=== PATIENT | female | born 1995 | race Caucasian/White ===

== ENCOUNTER 2017-08-12 19:53 | Emergency (ER) | payer OTHER ==
[~2017-08-12] VITALS: Ht 170.2 cm; Wt 106.6 kg
[~2017-08-12 19:53] MED LIST: ACEBUTCAFT PO; ALBU90I INH; ALBU90OI INH; ALBU90OI6 INH; ALBU90OI61 INH; AMOCLA875 PO; AMOX500 PO; AZIT250 PO; Augmentin 875-1 EACH PO; BENZ100A PO; Bactrim Ds Tab1 EACH PO; CEPH500 PO; CODGUAEL PO; CRUTCH4 USE; CYCL10 PO; Cleocin HCl150 MG PO; FLUT.05NI; GUAI600T33 PO; HYDACE5 PO; HYDHCL25 PO; IBUP600 PO; IBUP800 PO; Keflex500 MG PO; METF500; METF500 PO; METPRE4DP PO; NAPR500 PO; NAPR550 PO; Nasonex17 GM; Norco 5-325 Ta1 EACH PO; Omeprazole20 M1 PO; PANT40 PO; PENVK500 PO; PERM5TC TOP; PRED20 PO; PROCODE120 PO; PROM25 PO; PSEU120ER PO; Percocet 5-3251 EACH PO; Prednisone20 MG PO; RANI150 PO; RXCODGUASY PO; RXCYCL10 PO; RXHYDACE PO; SERT25 PO; SULTRIDS PO; SULTRISS PO; TRAM50 PO; TYLENOL/MOTRIN PRN; Toradol10 MG PO; Ultram50 MG PO; VICODIN 5-3001 EACH PO; Veetids 500500 MG PO; Ventolin/Prove6.7 GM INH; Zithromax250 MG PO; Zofran4 MG PO; Zofran8 MG PO
[2017-08-12] MEDS ORDERED: IBUP600 PO (21:43)
[2017-08-12] MEDS ORDERED: Robaxin-750750 MG PO (21:43)
== END 2017-08-12 21:55 | disposition home or self-care (01) ==
LOC: ER 19:53
DX: G89.29 Other chronic pain (principal); M54.5 Low back pain; F32.9 Major depressive disorder, single episode, unspecified; J45.909 Unspecified asthma, uncomplicated; F17.200 Nicotine dependence, unspecified, uncomplicated; Z79.899 Other long term (current) drug therapy
CPT/HCPCS: 81000; 81025; 99283; J1100

== ENCOUNTER 2017-08-27 23:57 | Emergency (ER) | payer OTHER ==
[~2017-08-27] VITALS: Ht 170.2 cm; Wt 102.1 kg
[~2017-08-27 23:57] MED LIST changes: +Robaxin-750750 MG PO
[2017-08-28] MEDS ORDERED: Omeprazole20 M1 (00:07)
== END 2017-08-28 01:09 | disposition home or self-care (01) ==
LOC: ER 23:57
DX: G89.29 Other chronic pain (principal); M54.5 Low back pain; Z79.899 Other long term (current) drug therapy; J45.909 Unspecified asthma, uncomplicated; F32.9 Major depressive disorder, single episode, unspecified; F31.9 Bipolar disorder, unspecified; F17.200 Nicotine dependence, unspecified, uncomplicated
CPT/HCPCS: 96372; 99284; J1100; J1885; J3010

== ENCOUNTER → 2017-10-24 | Outpatient (CLI) | payer OTHER ==
[~2017-10-24] MED LIST changes: +Omeprazole20 M1
[2017-10-24 13:36] LABS: BASOPHILS ABSOLUTE AUTO 0.04 K/mm3 (0.00-0.23); BASOPHILS PERCENT AUTO 0 % (0-2); EOSINOPHILS ABSOLUTE AUTO 0.89 K/mm3 (0.00-0.68); EOSINOPHILS PERCENT AUTO 8 % (0-6); Hematocrit 39.6 % (33.0-51.0); Hemoglobin 13.6 g/dL (11.5-16.0); IMMATURE GRAN ABSOLUTE AUTO 0.03 K/mm3 (0.00-0.10); IMMATURE GRAN PERCENT AUTO 0 % (0-1); LYMPHOCYTES ABSOLUTE AUTO 2.51 K/mm3 (0.84-5.20); LYMPHOCYTES PERCENT AUTO 24 % (21-46); MONOCYTES ABSOLUTE AUTO 0.51 K/mm3 (0.16-1.47); MONOCYTES PERCENT AUTO 5 % (4-13); Mean Corpuscular HGB 28.5 pg (26.0-34.0); Mean Corpuscular HGB Conc 34.3 g/dL (31.5-36.5); Mean Corpuscular Volume 83 fL (80-100); Mean Platelet Volume 10.1 fL (9.1-12.4); NEUTROPHILS ABSOLUTE AUTO 6.68 K/mm3 (1.96-9.15); NEUTROPHILS PERCENT AUTO 63 % (41-73); Platelet Count 316 K/mm3 (150-400); RDW Coefficient Variation 14.6 % (11.7-14.2); RDW Standard Deviation 44.3 fL (35.1-46.3); Red Blood Cell Count 4.77 M/mm3 (3.80-5.20); White Blood Cell Count 10.66 K/mm3 (4.00-11.30)
[2017-10-24 13:49] LABS: Alanine Aminotransfer (ALT/SGP 31 U/L (12-78); Albumin, Blood 3.8 g/dL (3.4-5.0); Albumin/Globulin Ratio 0.9 (0.8-1.8); Alk Phos 75 U/L (40-126); Anion Gap 9 mmol/L (6-16); Aspartate Aminotrans (AST/SGOT 19 U/L (12-37); Bilirubin, Total 0.2 mg/dL (0.1-1.0); Blood Urea Nitrogen 8 mg/dL (8-24); Bun/Creatinine Ratio 12.3 (12.0-20.0); CO2, Blood 26 mmol/L (21-32); Calcium, Blood 9.2 mg/dL (8.5-10.1); Chloride, Blood 103 mmol/L (98-108); Creatinine, Blood 0.65 mg/dL (0.40-1.00); Globulin, Blood 4.1 g/dL (2.2-4.0); Glomerular Filtration Rate >60 (60-); Glucose, Blood 115 mg/dL (70-99); Potassium, Blood 4.1 mmol/L (3.5-5.5); Sodium, Blood 138 mmol/L (136-145); Total Protein, Blood 7.9 g/dL (6.4-8.2)
== END | disposition home or self-care (01) ==
LOC: LAB EV 13:33
PROVIDERS: Physician Assistant
DX: R10.84 Generalized abdominal pain (principal)
CPT/HCPCS: 80053; 83690; 85025

== ENCOUNTER 2018-09-15 21:37 | Emergency (ER) | payer OTHER ==
[~2018-09-15] VITALS: Ht 170.2 cm; Wt 113.4 kg
[2018-09-15 22:12] LABS: BASOPHILS ABSOLUTE AUTO 0.05 K/mm3 (0.00-0.23); BASOPHILS PERCENT AUTO 0 % (0-2); EOSINOPHILS ABSOLUTE AUTO 0.68 K/mm3 (0.00-0.68); EOSINOPHILS PERCENT AUTO 5 % (0-6); Hematocrit 40.2 % (33.0-51.0); Hemoglobin 13.7 g/dL (11.5-16.0); IMMATURE GRAN ABSOLUTE AUTO 0.05 K/mm3 (0.00-0.10); IMMATURE GRAN PERCENT AUTO 0 % (0-1); LYMPHOCYTES ABSOLUTE AUTO 4.34 K/mm3 (0.84-5.20); LYMPHOCYTES PERCENT AUTO 28 % (21-46); MONOCYTES ABSOLUTE AUTO 1.07 K/mm3 (0.16-1.47); MONOCYTES PERCENT AUTO 7 % (4-13); Mean Corpuscular HGB 30.1 pg (26.0-34.0); Mean Corpuscular HGB Conc 34.1 g/dL (31.5-36.5); Mean Corpuscular Volume 88 fL (80-100); NEUTROPHILS ABSOLUTE AUTO 9.07 K/mm3 (1.96-9.15); NEUTROPHILS PERCENT AUTO 60 % (41-73); Platelet Count 339 K/mm3 (150-400); RDW Coefficient Variation 12.4 % (11.7-14.2); Red Blood Cell Count 4.55 M/mm3 (3.80-5.20); White Blood Cell Count 15.26 K/mm3 (4.00-11.30)
[2018-09-15 22:25] LABS: Alanine Aminotransfer (ALT/SGP 28 U/L (12-78); Alk Phos 75 U/L (50-136); Anion Gap 7 mmol/L (6-16); Aspartate Aminotrans (AST/SGOT 17 U/L (12-37); Bilirubin, Total 0.3 mg/dL (0.1-1.0); Blood Urea Nitrogen 11 mg/dL (8-24); Bun/Creatinine Ratio 15.3 (12.0-20.0); CO2, Blood 26 mmol/L (21-32); Calcium, Blood 8.4 mg/dL (8.5-10.1); Chloride, Blood 106 mmol/L (98-108); Creatinine, Blood 0.72 mg/dL (0.40-1.00); Globulin, Blood 4.1 g/dL (2.2-4.0); Glomerular Filtration Rate >60 (60-); Glucose, Blood 100 mg/dL (70-99); Potassium, Blood 3.7 mmol/L (3.5-5.5); Sodium, Blood 139 mmol/L (136-145); Total Protein, Blood 8.1 g/dL (6.4-8.2)
[2018-09-15] MEDS ORDERED: ALBU90OI INH (23:19)
[2018-09-15] MEDS ORDERED: Prednisone20 MG PO (23:19)
[2018-09-15] MEDS ORDERED: ONDA4ODT MM (23:19)
== END 2018-09-15 23:46 | disposition home or self-care (01) ==
LOC: ER 21:37
PROVIDERS: Emergency Medicine
DX: J20.9 Acute bronchitis, unspecified (principal); F17.210 Nicotine dependence, cigarettes, uncomplicated; F31.9 Bipolar disorder, unspecified; Z79.899 Other long term (current) drug therapy
CPT/HCPCS: 71046; 80053; 85025; 94640; 96374; 96375; 99284-25; J1885; J2405; J2930

== ENCOUNTER 2018-10-02 16:39 | Emergency (ER) | payer OTHER ==
[~2018-10-02] VITALS: Ht 170.2 cm; Wt 113.4 kg
[~2018-10-02 16:39] MED LIST changes: +ONDA4ODT MM
[2018-10-02 17:25] LABS: BASOPHILS ABSOLUTE AUTO 0.07 K/mm3 (0.00-0.23); BASOPHILS PERCENT AUTO 0 % (0-2); EOSINOPHILS ABSOLUTE AUTO 0.36 K/mm3 (0.00-0.68); EOSINOPHILS PERCENT AUTO 2 % (0-6); Hematocrit 45.2 % (33.0-51.0); Hemoglobin 15.3 g/dL (11.5-16.0); IMMATURE GRAN ABSOLUTE AUTO 0.05 K/mm3 (0.00-0.10); IMMATURE GRAN PERCENT AUTO 0 % (0-1); LYMPHOCYTES ABSOLUTE AUTO 3.56 K/mm3 (0.84-5.20); LYMPHOCYTES PERCENT AUTO 21 % (21-46); MONOCYTES ABSOLUTE AUTO 1.14 K/mm3 (0.16-1.47); MONOCYTES PERCENT AUTO 7 % (4-13); Mean Corpuscular HGB 29.8 pg (26.0-34.0); Mean Corpuscular HGB Conc 33.8 g/dL (31.5-36.5); Mean Corpuscular Volume 88 fL (80-100); NEUTROPHILS ABSOLUTE AUTO 12.01 K/mm3 (1.96-9.15); NEUTROPHILS PERCENT AUTO 70 % (41-73); Platelet Count 419 K/mm3 (150-400); RDW Coefficient Variation 12.5 % (11.7-14.2); RDW Standard Deviation 40.8 fL (35.1-46.3); Red Blood Cell Count 5.14 M/mm3 (3.80-5.20); White Blood Cell Count 17.19 K/mm3 (4.00-11.30)
[2018-10-02 17:56] LABS: Alanine Aminotransfer (ALT/SGP 43 U/L (12-78); Albumin/Globulin Ratio 0.9 (0.8-1.8); Alk Phos 70 U/L (50-136); Anion Gap 8 mmol/L (6-16); Aspartate Aminotrans (AST/SGOT 27 U/L (12-37); Bilirubin, Total 0.4 mg/dL (0.1-1.0); Blood Urea Nitrogen 7 mg/dL (8-24); Bun/Creatinine Ratio 12.7 (12.0-20.0); CO2, Blood 24 mmol/L (21-32); Calcium, Blood 8.7 mg/dL (8.5-10.1); Chloride, Blood 106 mmol/L (98-108); Creatinine, Blood 0.55 mg/dL (0.40-1.00); Globulin, Blood 4.4 g/dL (2.2-4.0); Glomerular Filtration Rate >60 (60-); Glucose, Blood 114 mg/dL (70-99); Potassium, Blood 3.6 mmol/L (3.5-5.5); Sodium, Blood 138 mmol/L (136-145); Total Protein, Blood 8.4 g/dL (6.4-8.2)
[2018-10-02 18:02] LABS: Source, Urine Clean Catch
[2018-10-02 18:18] LABS: Appearance, Urine Clear (Clear); Bilirubin, Urine Neg (Neg); Blood, Urine 2+ (Neg); Color, Urine Yellow (P-Yellow); Glucose Qualitative, Urine Neg (Neg); Ketones, Urine Neg (Neg); Leukocyte Esterase, Urine Neg (Neg); Nitrite, Urine Neg (Neg); Protein, Urine 1+ (Neg); Specific Gravity, Urine 1.015 (1.003-1.022); Urobilinogen, Urine NORM (Normal); pH, Urine 6.5 (5.0-8.0)
[2018-10-02 18:34] LABS: Squamous Epithelial Cells Few /hpf (Few)
[2018-10-02 18:35] LABS: Bacteria Rare /hpf; White Blood Cells, Urine Not Seen /hpf (0-5)
[2018-10-02] MEDS ORDERED: ACID REDUCER 1150 MG PO (19:32)
[2018-10-02] MEDS ORDERED: Norco 5-325 Ta1 EACH PO (20:44)
[2018-10-02] MEDS ORDERED: COMPAZINE10 MG PO (20:44)
== END 2018-10-02 21:01 | disposition home or self-care (01) ==
LOC: ER 16:39
PROVIDERS: Emergency Medicine
DX: K52.9 Noninfective gastroenteritis and colitis, unspecified (principal); F31.9 Bipolar disorder, unspecified; J45.909 Unspecified asthma, uncomplicated; M54.9 Dorsalgia, unspecified; G89.29 Other chronic pain; F17.210 Nicotine dependence, cigarettes, uncomplicated
CPT/HCPCS: 36415; 80053; 81001; 84703; 85025; 96361; 96374; 96375; 99284-25; J0780; J1170; J1200; J2405; J7030

== ENCOUNTER 2019-01-16 23:37 | Emergency (ER) | payer MEDICAID ==
[~2019-01-16] VITALS: Ht 170.2 cm; Wt 113.8 kg
[~2019-01-16 23:37] MED LIST changes: +ACID REDUCER 1150 MG PO; +COMPAZINE10 MG PO
[2019-01-17] MEDS ORDERED: CEPH500 PO (01:04)
[2019-01-17] MEDS ORDERED: Bactrim Ds Tab1 EACH PO (01:04)
== END 2019-01-17 01:18 | disposition home or self-care (01) ==
LOC: ER 23:37
DX: L03.112 Cellulitis of left axilla (principal); L02.412 Cutaneous abscess of left axilla; Z79.899 Other long term (current) drug therapy; J45.909 Unspecified asthma, uncomplicated; F31.9 Bipolar disorder, unspecified; F17.210 Nicotine dependence, cigarettes, uncomplicated
CPT/HCPCS: 10060; 99283-25; A9270

== ENCOUNTER 2019-02-23 02:01 | Emergency (ER) | payer OTHER ==
[~2019-02-23] VITALS: Ht 170.2 cm; Wt 108.9 kg
[2019-02-23] MEDS ORDERED: Bactrim Ds Tab1 EACH PO (05:55)
[2019-02-23] MEDS ORDERED: CEPH500 PO (05:55)
== END 2019-02-23 06:43 | disposition home or self-care (01) ==
LOC: ER 02:01
DX: L02.412 Cutaneous abscess of left axilla (principal); L03.112 Cellulitis of left axilla; I88.9 Nonspecific lymphadenitis, unspecified; J45.909 Unspecified asthma, uncomplicated; F31.9 Bipolar disorder, unspecified; M79.10 Myalgia, unspecified site; F17.210 Nicotine dependence, cigarettes, uncomplicated
CPT/HCPCS: 99283; A9270

== ENCOUNTER 2019-05-05 13:39 | Emergency (ER) | payer OTHER ==
[~2019-05-05] VITALS: Ht 170.2 cm; Wt 99.8 kg
[2019-05-05] MEDS ORDERED: Lexapro 2020 MG PO (13:52)
[2019-05-05] MEDS ORDERED: Prednisone20 MG PO (13:53)
[2019-05-05] MEDS ORDERED: AZIT250 PO (13:53)
[2019-05-05] MEDS ORDERED: Cheratussin AC118 ML PO (15:18)
[2019-05-05] MEDS ORDERED: Sudogest30 MG PO (15:18)
[2019-05-05] MEDS ORDERED: Flonase 0.05% N16 GM (15:18)
== END 2019-05-05 15:24 | disposition home or self-care (01) ==
LOC: ER 13:39
DX: J45.909 Unspecified asthma, uncomplicated (principal); Z79.899 Other long term (current) drug therapy; Z79.52 Long term (current) use of systemic steroids; F31.9 Bipolar disorder, unspecified; F17.210 Nicotine dependence, cigarettes, uncomplicated
CPT/HCPCS: 94640; 99283-25

== ENCOUNTER → 2019-06-26 | Outpatient (CLI) | payer OTHER ==
[~2019-06-26] MED LIST changes: +Cheratussin AC118 ML PO; +Flonase 0.05% N16 GM; +Lexapro 2020 MG PO; +Sudogest30 MG PO
== END | disposition home or self-care (01) ==
LOC: LAB SHORT 07:58 → PLD 07:58
DX: R23.3 Spontaneous ecchymoses (principal)
CPT/HCPCS: 88305; 88312

== ENCOUNTER 2019-08-03 03:13 | Emergency (ER) | payer OTHER ==
[~2019-08-03] VITALS: Ht 170.2 cm; Wt 111.1 kg
== END 2019-08-03 06:15 | disposition home or self-care (01) ==
LOC: ER 03:13
DX: S93.401A Sprain of unspecified ligament of right ankle, initial encounter (principal); X50.9XXA Other and unspecified overexertion or strenuous movements or postures, initial encounter; F31.9 Bipolar disorder, unspecified; F17.210 Nicotine dependence, cigarettes, uncomplicated
CPT/HCPCS: 73610; 96372; 99283-25; J1885

== ENCOUNTER 2019-11-16 01:42 | Emergency (ER) | payer OTHER ==
[~2019-11-16] VITALS: Ht 170.2 cm; Wt 113.4 kg
[2019-11-16 02:29] LABS: BASOPHILS ABSOLUTE AUTO 0.07 K/mm3 (0.00-0.23); BASOPHILS PERCENT AUTO 1 % (0-2); EOSINOPHILS ABSOLUTE AUTO 0.37 K/mm3 (0.00-0.68); EOSINOPHILS PERCENT AUTO 3 % (0-6); Hematocrit 41.6 % (33.0-51.0); Hemoglobin 14.1 g/dL (11.5-16.0); IMMATURE GRAN ABSOLUTE AUTO 0.03 K/mm3 (0.00-0.10); IMMATURE GRAN PERCENT AUTO 0 % (0-1); LYMPHOCYTES ABSOLUTE AUTO 4.11 K/mm3 (0.84-5.20); LYMPHOCYTES PERCENT AUTO 38 % (21-46); MONOCYTES ABSOLUTE AUTO 0.86 K/mm3 (0.16-1.47); MONOCYTES PERCENT AUTO 8 % (4-13); Mean Corpuscular HGB 29.1 pg (26.0-34.0); Mean Corpuscular HGB Conc 33.9 g/dL (31.5-36.5); Mean Corpuscular Volume 86 fL (80-100); Mean Platelet Volume 10.4 fL (9.1-12.4); NEUTROPHILS ABSOLUTE AUTO 5.38 K/mm3 (1.96-9.15); NEUTROPHILS PERCENT AUTO 50 % (41-73); Platelet Count 347 K/mm3 (150-400); RDW Coefficient Variation 12.5 % (11.7-14.2); RDW Standard Deviation 39.2 fL (35.1-46.3); Red Blood Cell Count 4.84 M/mm3 (3.80-5.20); White Blood Cell Count 10.82 K/mm3 (4.00-11.30)
[2019-11-16 03:04] LABS: Alanine Aminotransfer (ALT/SGP 39 U/L (12-78); Albumin, Blood 3.8 g/dL (3.4-5.0); Albumin/Globulin Ratio 0.9 (0.8-1.8); Alk Phos 82 U/L (50-136); Anion Gap 8 mmol/L (6-16); Aspartate Aminotrans (AST/SGOT 19 U/L (12-37); Bilirubin, Total 0.3 mg/dL (0.1-1.0); Blood Urea Nitrogen 7 mg/dL (8-24); Bun/Creatinine Ratio 13.5 (12.0-20.0); CO2, Blood 26 mmol/L (21-32); Calcium, Blood 8.8 mg/dL (8.5-10.1); Chloride, Blood 104 mmol/L (98-108); Creatinine, Blood 0.52 mg/dL (0.40-1.00); Globulin, Blood 4.2 g/dL (2.2-4.0); Glomerular Filtration Rate >60 (60-); Glucose, Blood 133 mg/dL (70-99); Potassium, Blood 3.9 mmol/L (3.5-5.5); Sodium, Blood 138 mmol/L (136-145)
[2019-11-18] MEDS ORDERED: Sucralfate1 GM PO (14:16)
== END 2019-11-16 03:59 | disposition home or self-care (01) ==
LOC: ER 01:42
PROVIDERS: Emergency Medicine
DX: R10.13 Epigastric pain (principal); K76.0 Fatty (change of) liver, not elsewhere classified; F31.9 Bipolar disorder, unspecified; J45.909 Unspecified asthma, uncomplicated; M54.9 Dorsalgia, unspecified; G89.29 Other chronic pain; F17.210 Nicotine dependence, cigarettes, uncomplicated
CPT/HCPCS: 36415; 76705; 80053; 83690; 85025; 96374; 99284-25; A9270; J1170

== ENCOUNTER 2020-03-01 03:16 | Emergency (ER) | payer OTHER ==
[~2020-03-01] VITALS: Ht 170.2 cm; Wt 113.4 kg
[~2020-03-01 03:16] MED LIST changes: +Sucralfate1 GM PO
[2020-03-01] MEDS ORDERED: Ultram50 MG PO (03:37)
[2020-03-01] MEDS ORDERED: Bactrim Ds Tab1 EACH PO (03:37)
[2020-03-01] MEDS ORDERED: HIBICLENS120 ML EXT (03:37)
== END 2020-03-01 04:39 | disposition home or self-care (01) ==
LOC: ER 03:16
DX: Z48.817 Encounter for surgical aftercare following surgery on the skin and subcutaneous tissue (principal); Z79.899 Other long term (current) drug therapy; F31.9 Bipolar disorder, unspecified; Z86.14 Personal history of Methicillin resistant Staphylococcus aureus infection; F17.210 Nicotine dependence, cigarettes, uncomplicated
CPT/HCPCS: 99282; A9270-GY

== ENCOUNTER 2020-03-17 02:38 | Emergency (ER) | payer OTHER ==
[~2020-03-17] VITALS: Ht 170.2 cm; Wt 113.4 kg
[~2020-03-17 02:38] MED LIST changes: +HIBICLENS120 ML EXT
== END 2020-03-17 03:23 | disposition home or self-care (01) ==
LOC: ER 02:38
DX: Z48.817 Encounter for surgical aftercare following surgery on the skin and subcutaneous tissue (principal); Z79.899 Other long term (current) drug therapy; F31.9 Bipolar disorder, unspecified; F17.210 Nicotine dependence, cigarettes, uncomplicated
CPT/HCPCS: 99282

== ENCOUNTER → 2020-05-21 | Outpatient (CLI) | payer OTHER ==
[2020-05-21 14:44] LABS: Candida species (DNA Probe) Negative (NEGATIVE); G. vaginalis (DNA Probe) Negative (NEGATIVE); T. vaginalis (DNA Probe) Positive (NEGATIVE)
[2020-05-24 20:07] LABS: CHLAMYDIA TRACHOMATIS, NAA Negative (Negative); NEISSERIA GONORRHOEAE, NAA Negative (Negative)
== END | disposition home or self-care (01) ==
LOC: LAB SHORT 09:30 → LAB 09:30
PROVIDERS: Nurse Practitioner Family
DX: N30.00 Acute cystitis without hematuria (principal); N89.8 Other specified noninflammatory disorders of vagina; J02.9 Acute pharyngitis, unspecified; Z20.2 Contact with and (suspected) exposure to infections with a predominantly sexual mode of transmission
CPT/HCPCS: 87070; 87086; 87147; 87205; 87480; 87491; 87510; 87591; 87660

== ENCOUNTER 2020-08-28 15:52 | Emergency (ER) | payer OTHER ==
[~2020-08-28] VITALS: Ht 170.2 cm; Wt 117.9 kg
[2020-08-28] MEDS ORDERED: AMOX500 PO (16:20)
[2020-08-28] MEDS ORDERED: METF500 PO (16:20)
[2020-08-28] MEDS ORDERED: LIDO5TO TOP (16:20)
[2021-03-03] MEDS ORDERED: Percocet 5-3251 EACH PO (04:23)
[2021-03-03] MEDS ORDERED: MEDR10 PO (04:23)
== END 2020-08-28 17:49 | disposition home or self-care (01) ==
LOC: ER 15:52
DX: E11.65 Type 2 diabetes mellitus with hyperglycemia (principal); F17.210 Nicotine dependence, cigarettes, uncomplicated; Z88.8 Allergy status to other drugs, medicaments and biological substances; Z79.84 Long term (current) use of oral hypoglycemic drugs
CPT/HCPCS: 82947; 99284

== ENCOUNTER 2020-09-16 14:07 | Emergency (ER) | payer OTHER ==
[~2020-09-16] VITALS: Ht 170.2 cm; Wt 108.9 kg
[~2020-09-16 14:07] MED LIST changes: +LIDO5TO TOP
[2020-09-16 15:00] LABS: Source, Urine Clean Catch
[2020-09-16 15:03] LABS: BASOPHILS ABSOLUTE AUTO 0.06 K/mm3 (0.00-0.23); BASOPHILS PERCENT AUTO 1 % (0-2); EOSINOPHILS ABSOLUTE AUTO 0.27 K/mm3 (0.00-0.68); EOSINOPHILS PERCENT AUTO 2 % (0-6); Hematocrit 41.5 % (33.0-51.0); Hemoglobin 13.6 g/dL (11.5-16.0); IMMATURE GRAN ABSOLUTE AUTO 0.04 K/mm3 (0.00-0.10); IMMATURE GRAN PERCENT AUTO 0 % (0-1); LYMPHOCYTES ABSOLUTE AUTO 4.84 K/mm3 (0.84-5.20); LYMPHOCYTES PERCENT AUTO 42 % (21-46); MONOCYTES ABSOLUTE AUTO 0.75 K/mm3 (0.16-1.47); MONOCYTES PERCENT AUTO 6 % (4-13); Mean Corpuscular HGB 27.7 pg (26.0-34.0); Mean Corpuscular HGB Conc 32.8 g/dL (31.5-36.5); Mean Corpuscular Volume 85 fL (80-100); Mean Platelet Volume 10.6 fL (9.1-12.4); NEUTROPHILS PERCENT AUTO 49 % (41-73); Platelet Count 329 K/mm3 (150-400); RDW Coefficient Variation 13.1 % (11.7-14.2); RDW Standard Deviation 40.3 fL (35.1-46.3); Red Blood Cell Count 4.91 M/mm3 (3.80-5.20); White Blood Cell Count 11.66 K/mm3 (4.00-11.30)
[2020-09-16 15:12] LABS: Appearance, Urine Clear (Clear); Bilirubin, Urine Neg (Neg); Blood, Urine 2+ (Neg); Color, Urine Yellow (P-Yellow); Glucose Qualitative, Urine Neg (Neg); Ketones, Urine 3+ (Neg); Leukocyte Esterase, Urine Neg (Neg); Nitrite, Urine Neg (Neg); Protein, Urine 3+ (Neg); Specific Gravity, Urine 1.025 (1.003-1.022); Urobilinogen, Urine NORM (Normal)
[2020-09-16 15:21] LABS: Bacteria Few /hpf; Squamous Epithelial Cells Few /hpf (Few); White Blood Cells, Urine 0-2 /hpf (0-5)
[2020-09-16 15:31] LABS: Alanine Aminotransfer (ALT/SGP 51 U/L (12-78); Albumin, Blood 3.8 g/dL (3.4-5.0); Albumin/Globulin Ratio 0.9 (0.8-1.8); Alk Phos 103 U/L (50-136); Anion Gap 8 mmol/L (6-16); Aspartate Aminotrans (AST/SGOT 26 U/L (12-37); Bilirubin, Total 0.3 mg/dL (0.1-1.0); Blood Urea Nitrogen 15 mg/dL (8-24); Bun/Creatinine Ratio 25.7 (12.0-20.0); CO2, Blood 25 mmol/L (21-32); Calcium, Blood 9.1 mg/dL (8.5-10.1); Chloride, Blood 104 mmol/L (98-108); Creatinine, Blood 0.58 mg/dL (0.40-1.00); Globulin, Blood 4.1 g/dL (2.2-4.0); Glomerular Filtration Rate >60 (60-); Glucose, Blood 124 mg/dL (70-99); Sodium, Blood 137 mmol/L (136-145); Total Protein, Blood 7.9 g/dL (6.4-8.2)
[2020-09-16] MEDS ORDERED: DOXY100 PO (18:12)
[2020-09-16] MEDS ORDERED: LORCET 5-325 M1 EACH PO (18:15)
[2021-03-03] MEDS ORDERED: MEDR10 PO (04:23)
[2021-03-03] MEDS ORDERED: Percocet 5-3251 EACH PO (04:23)
== END 2020-09-16 18:44 | disposition home or self-care (01) ==
LOC: ER 14:07
PROVIDERS: Physician Assistant
DX: N73.9 Female pelvic inflammatory disease, unspecified (principal); F17.210 Nicotine dependence, cigarettes, uncomplicated; Z88.8 Allergy status to other drugs, medicaments and biological substances; Z79.84 Long term (current) use of oral hypoglycemic drugs
CPT/HCPCS: 36415; 74176; 80053; 81000; 81001; 81025; 85025; 96372; 99284-25; A9270; J0696

== ENCOUNTER 2020-10-07 08:11 | Emergency (ER) | payer OTHER ==
[~2020-10-07] VITALS: Ht 170.2 cm; Wt 106.6 kg
[~2020-10-07 08:11] MED LIST changes: +DOXY100 PO; +LORCET 5-325 M1 EACH PO
[2021-03-03] MEDS ORDERED: MEDR10 PO (04:23)
[2021-03-03] MEDS ORDERED: Percocet 5-3251 EACH PO (04:23)
== END 2020-10-07 09:56 | disposition home or self-care (01) ==
LOC: ER 08:11
DX: S19.9XXA Unspecified injury of neck, initial encounter (principal); J45.909 Unspecified asthma, uncomplicated; F17.210 Nicotine dependence, cigarettes, uncomplicated; Y04.8XXA Assault by other bodily force, initial encounter
CPT/HCPCS: 70360; 99283-25

== ENCOUNTER 2020-10-28 08:44 | Emergency (ER) | payer OTHER ==
[~2020-10-28] VITALS: Ht 170.2 cm; Wt 103.0 kg
[2020-10-28 09:10] LABS: Hematocrit 43.1 % (33.0-51.0); Hemoglobin 14.3 g/dL (11.5-16.0); Mean Corpuscular HGB 28.4 pg (26.0-34.0); Mean Corpuscular HGB Conc 33.2 g/dL (31.5-36.5); Mean Corpuscular Volume 86 fL (80-100); Mean Platelet Volume 10.6 fL (9.1-12.4); Platelet Count 382 K/mm3 (150-400); RDW Coefficient Variation 13.4 % (11.7-14.2); RDW Standard Deviation 41.9 fL (35.1-46.3); Red Blood Cell Count 5.03 M/mm3 (3.80-5.20); White Blood Cell Count 14.28 K/mm3 (4.00-11.30)
[2020-10-28 09:38] LABS: BASOPHILS PERCENT MAN 0 % (0-2); EOSINOPHILS ABSOLUTE MAN 0.14 K/mm3 (0.00-0.68); EOSINOPHILS PERCENT MAN 1 % (0-6); LYMPHOCYTES ABSOLUTE MAN 4.99 K/mm3 (0.84-5.20); LYMPHOCYTES PERCENT MAN 35 % (21-46); MONOCYTES ABSOLUTE MAN 0.99 K/mm3 (0.16-1.47); MONOCYTES PERCENT MAN 7 % (4-13); NEUTROPHILS ABSOLUTE MAN 8.13 K/mm3 (1.96-9.15); SEG NEUTROPHILS PERCENT MAN 57 % (41-73); TOTAL CELLS COUNTED 100
[2020-10-28 09:40] LABS: Source, Urine Clean Catch
[2020-10-28 09:43] LABS: Albumin, Blood 3.6 g/dL (3.4-5.0); Albumin/Globulin Ratio 0.9 (0.8-1.8); Alk Phos 89 U/L (50-136); Anion Gap 7 mmol/L (6-16); Bilirubin, Total 0.3 mg/dL (0.1-1.0); Blood Urea Nitrogen 14 mg/dL (8-24); Bun/Creatinine Ratio 25.4 (12.0-20.0); CO2, Blood 24 mmol/L (21-32); Calcium, Blood 8.6 mg/dL (8.5-10.1); Chloride, Blood 108 mmol/L (98-108); Creatinine, Blood 0.55 mg/dL (0.40-1.00); Globulin, Blood 4.1 g/dL (2.2-4.0); Glomerular Filtration Rate >60 (60-); Glucose, Blood 170 mg/dL (70-99); Potassium, Blood 4.4 mmol/L (3.5-5.5); Sodium, Blood 139 mmol/L (136-145); Total Protein, Blood 7.7 g/dL (6.4-8.2)
[2020-10-28 09:44] LABS: Bilirubin, Urine Neg (Neg); Blood, Urine 2+ (Neg); Glucose Qualitative, Urine Neg (Neg); Ketones, Urine Neg (Neg); Leukocyte Esterase, Urine 1+ (Neg); Nitrite, Urine Neg (Neg); Protein, Urine Neg (Neg); Urobilinogen, Urine NORM (Normal)
[2020-10-28 09:50] LABS: Appearance, Urine Clear (Clear); Color, Urine Yellow (P-Yellow)
[2020-10-28 09:52] LABS: Bacteria Mod /hpf; Squamous Epithelial Cells Mod /hpf (Few)
[2020-10-28 09:54] LABS: Alanine Aminotransfer (ALT/SGP 30 U/L (12-78); Aspartate Aminotrans (AST/SGOT 23 U/L (12-37)
[2020-10-28] MEDS ORDERED: Norco 5-325 Ta1 EACH PO (12:09)
[2021-03-03] MEDS ORDERED: MEDR10 PO (04:23)
[2021-03-03] MEDS ORDERED: Percocet 5-3251 EACH PO (04:23)
== END 2020-10-28 12:34 | disposition home or self-care (01) ==
LOC: ER 08:44
PROVIDERS: Emergency Medicine; Physician Assistant
DX: K29.70 Gastritis, unspecified, without bleeding (principal); Z88.8 Allergy status to other drugs, medicaments and biological substances; Z79.899 Other long term (current) drug therapy
CPT/HCPCS: 36415; 76705; 80053; 81001; 81025; 83690; 85025; 87086; 99284-25; A9270

== ENCOUNTER 2020-12-21 21:04 | Emergency (ER) | payer OTHER ==
[~2020-12-21] VITALS: Ht 170.2 cm; Wt 99.8 kg
[2020-12-21 21:34] LABS: Source, Urine Clean Catch
[2020-12-21 21:44] LABS: Bilirubin, Urine Neg (Neg); Blood, Urine 3+ (Neg); Glucose Qualitative, Urine Neg (Neg); Ketones, Urine Neg (Neg); Leukocyte Esterase, Urine 1+ (Neg); Nitrite, Urine Neg (Neg); Protein, Urine 1+ (Neg); Specific Gravity, Urine 1.015 (1.003-1.022); Urobilinogen, Urine NORM (Normal); pH, Urine 6.5 (5.0-8.0)
[2020-12-21 22:13] LABS: Appearance, Urine Clear (Clear); Color, Urine Yellow (P-Yellow)
[2020-12-21 22:15] LABS: Bacteria Rare /hpf; Squamous Epithelial Cells Few /hpf (Few); White Blood Cells, Urine Rare /hpf (0-5)
[2020-12-21 23:14] LABS: BASOPHILS ABSOLUTE AUTO 0.04 K/mm3 (0.00-0.23); BASOPHILS PERCENT AUTO 0 % (0-2); EOSINOPHILS ABSOLUTE AUTO 0.33 K/mm3 (0.00-0.68); EOSINOPHILS PERCENT AUTO 3 % (0-6); Hematocrit 41.9 % (33.0-51.0); Hemoglobin 14.1 g/dL (11.5-16.0); Mean Corpuscular HGB 28.4 pg (26.0-34.0); Mean Corpuscular HGB Conc 33.7 g/dL (31.5-36.5); Mean Corpuscular Volume 84 fL (80-100); Mean Platelet Volume 10.4 fL (9.1-12.4); Platelet Count 344 K/mm3 (150-400); RDW Coefficient Variation 12.4 % (11.7-14.2); RDW Standard Deviation 37.3 fL (35.1-46.3); Red Blood Cell Count 4.97 M/mm3 (3.80-5.20); White Blood Cell Count 13.28 K/mm3 (4.00-11.30)
[2020-12-21 23:16] LABS: IMMATURE GRAN ABSOLUTE AUTO 0.04 K/mm3 (0.00-0.10); IMMATURE GRAN PERCENT AUTO 0 % (0-1); LYMPHOCYTES ABSOLUTE AUTO 5.35 K/mm3 (0.84-5.20); LYMPHOCYTES PERCENT AUTO 40 % (21-46); MONOCYTES ABSOLUTE AUTO 0.71 K/mm3 (0.16-1.47); MONOCYTES PERCENT AUTO 5 % (4-13); NEUTROPHILS ABSOLUTE AUTO 6.81 K/mm3 (1.96-9.15); NEUTROPHILS PERCENT AUTO 51 % (41-73)
[2020-12-21 23:33] LABS: Alanine Aminotransfer (ALT/SGP 27 U/L (12-78); Albumin, Blood 3.9 g/dL (3.4-5.0); Alk Phos 87 U/L (50-136); Anion Gap 4 mmol/L (6-16); Aspartate Aminotrans (AST/SGOT 16 U/L (12-37); Bilirubin, Total 0.2 mg/dL (0.1-1.0); Blood Urea Nitrogen 8 mg/dL (8-24); Bun/Creatinine Ratio 11.7 (12.0-20.0); CO2, Blood 30 mmol/L (21-32); Calcium, Blood 8.9 mg/dL (8.5-10.1); Chloride, Blood 103 mmol/L (98-108); Creatinine, Blood 0.68 mg/dL (0.40-1.00); Globulin, Blood 3.9 g/dL (2.2-4.0); Glomerular Filtration Rate >60 (60-); Glucose, Blood 94 mg/dL (70-99); Sodium, Blood 137 mmol/L (136-145); Total Protein, Blood 7.8 g/dL (6.4-8.2)
[2021-03-03] MEDS ORDERED: MEDR10 PO (04:23)
[2021-03-03] MEDS ORDERED: Percocet 5-3251 EACH PO (04:23)
== END 2020-12-22 00:59 | disposition home or self-care (01) ==
LOC: ER 21:04
PROVIDERS: Physician Assistant
DX: R10.2 Pelvic and perineal pain (principal); F17.210 Nicotine dependence, cigarettes, uncomplicated; Z88.8 Allergy status to other drugs, medicaments and biological substances; Z79.84 Long term (current) use of oral hypoglycemic drugs
CPT/HCPCS: 36415; 76770; 76856; 80053; 81001; 81025; 83690; 85025; 96374; 96375; 99284-25; A9270; J1170; J1885; J2405

== ENCOUNTER 2021-03-03 00:41 | Emergency (ER) | payer OTHER | END 2021-03-03 04:45 | disposition home or self-care (01) | LOC: ER 00:41 | DX: N92.1 Excessive and frequent menstruation with irregular cycle (principal) ==

== ENCOUNTER 2021-04-02 01:02 | Emergency (ER) | payer OTHER ==
[~2021-04-02] VITALS: Ht 170.2 cm; Wt 104.3 kg
[~2021-04-02 01:02] MED LIST changes: +MEDR10 PO
[2021-04-02 01:55] LABS: Calcium, Ionized (POC) 1.16 mmol/L (1.10-1.46); Chloride (POC) 106 mmol/L (98-108); Creatinine (POC) 0.7 mg/dL (0.6-1.0); Glucose (ISTAT POC) 139 mg/dL (70-99); Hemoglobin (POC) 11.9 g/dL (12.0-16.0); Potassium (POC) 3.9 mmol/L (3.5-5.5); Sodium (POC) 141 mmol/L (135-148); Total CO2 (POC) 23 mmol/L (21-32)
[2021-04-02 01:59] LABS: Source, Urine Clean Catch
[2021-04-02 02:01] LABS: Bilirubin, Urine Neg (Neg); Blood, Urine 5+ (Neg); Glucose Qualitative, Urine Neg (Neg); Ketones, Urine Neg (Neg); Leukocyte Esterase, Urine 2+ (Neg); Nitrite, Urine Neg (Neg); Protein, Urine 1+ (Neg); Urobilinogen, Urine NORM (Normal)
[2021-04-02 02:02] LABS: Appearance, Urine Hazy (Clear); Color, Urine Yellow (P-Yellow)
[2021-04-02 02:07] LABS: Amorphous Heavy (0-Heavy); Bacteria Few /hpf; Red Blood Cells, Urine TNTC /hpf (0-2); Squamous Epithelial Cells Rare /hpf (Few)
[2021-04-02] MEDS ORDERED: ESCI10 PO (02:09)
[2021-04-02] MEDS ORDERED: Provera10 MG PO (02:12)
[2021-04-03] MEDS ORDERED: METR500 PO (22:40)
[2021-04-03] MEDS ORDERED: HYDR1TAB94 PO ×2 (22:40→22:41)
== END 2021-04-02 02:23 | disposition home or self-care (01) ==
LOC: ER 01:02
PROVIDERS: Emergency Medicine
DX: N92.0 Excessive and frequent menstruation with regular cycle (principal); F17.210 Nicotine dependence, cigarettes, uncomplicated; J45.909 Unspecified asthma, uncomplicated; E28.2 Polycystic ovarian syndrome; Z88.6 Allergy status to analgesic agent
CPT/HCPCS: 36415; 80047; 81001; 81025; 85014; 87086; 96374; 99284-25; J1050; J1885

== ENCOUNTER 2021-04-03 18:56 | Emergency (ER) | payer OTHER ==
[~2021-04-03] VITALS: Ht 170.2 cm; Wt 104.3 kg
[~2021-04-03 18:56] MED LIST changes: +ESCI10 PO; +Provera10 MG PO
[2021-04-03 19:38] LABS: Source, Urine Clean Catch
[2021-04-03 19:46] LABS: Appearance, Urine Clear (Clear); Bilirubin, Urine Neg (Neg); Blood, Urine 4+ (Neg); Color, Urine Yellow (P-Yellow); Glucose Qualitative, Urine Neg (Neg); Ketones, Urine Neg (Neg); Leukocyte Esterase, Urine Neg (Neg); Nitrite, Urine Neg (Neg); Protein, Urine Neg (Neg); Specific Gravity, Urine 1.005 (1.003-1.022); Urobilinogen, Urine NORM (Normal)
[2021-04-03 19:55] LABS: Bacteria Few /hpf; Squamous Epithelial Cells Few /hpf (Few); White Blood Cells, Urine 0-2 /hpf (0-5)
[2021-04-03 21:30] LABS: Calcium, Ionized (POC) 1.16 mmol/L (1.10-1.46); Chloride (POC) 106 mmol/L (98-108); Creatinine (POC) 0.6 mg/dL (0.6-1.0); Glucose (ISTAT POC) 79 mg/dL (70-99); Hemoglobin (POC) 13.6 g/dL (12.0-16.0); Potassium (POC) 3.7 mmol/L (3.5-5.5); Sodium (POC) 141 mmol/L (135-148); Total CO2 (POC) 24 mmol/L (21-32)
[2021-04-03 22:18] LABS: Candida species (DNA Probe) Negative (NEGATIVE); G. vaginalis (DNA Probe) Positive (NEGATIVE); T. vaginalis (DNA Probe) Negative (NEGATIVE)
[2021-04-03] MEDS ORDERED: HYDR1TAB94 PO ×2 (22:40→22:41)
[2021-04-03] MEDS ORDERED: METR500 PO (22:40)
[2021-04-06 00:07] LABS: CHLAMYDIA TRACHOMATIS, NAA Negative (Negative)
== END 2021-04-03 23:02 | disposition home or self-care (01) ==
LOC: ER 18:56
PROVIDERS: Physician Assistant
DX: N94.6 Dysmenorrhea, unspecified (principal); E28.2 Polycystic ovarian syndrome; N76.0 Acute vaginitis; J45.909 Unspecified asthma, uncomplicated; F17.210 Nicotine dependence, cigarettes, uncomplicated; Z88.8 Allergy status to other drugs, medicaments and biological substances; Z79.84 Long term (current) use of oral hypoglycemic drugs; Z79.818 Long term (current) use of other agents affecting estrogen receptors and estrogen levels
CPT/HCPCS: 76830; 76856; 80047; 81001; 81025; 85014; 87480; 87491; 87510; 87591; 87660; 96372; 99284-25; A9270; J1885

== ENCOUNTER → 2021-05-23 | Outpatient (CLI) | payer OTHER ==
[~2021-05-23] MED LIST changes: +HYDR1TAB94 PO; +METR500 PO
== END | disposition home or self-care (01) ==
LOC: LAB 08:35 → LAB SHORT 08:35
DX: J02.9 Acute pharyngitis, unspecified (principal)
CPT/HCPCS: 87081

== ENCOUNTER 2021-06-09 00:49 | Emergency (ER) | payer OTHER ==
[~2021-06-09] VITALS: Ht 170.2 cm; Wt 108.9 kg
[2021-06-09 01:35] LABS: Source, Urine Clean Catch
[2021-06-09 01:39] LABS: Appearance, Urine Clear (Clear); Bilirubin, Urine Neg (Neg); Blood, Urine 1+ (Neg); Color, Urine Yellow (P-Yellow); Glucose Qualitative, Urine 4+ (Neg); Ketones, Urine Neg (Neg); Leukocyte Esterase, Urine Neg (Neg); Nitrite, Urine Neg (Neg); Protein, Urine 1+ (Neg); Urobilinogen, Urine NORM (Normal)
[2021-06-09 01:39] LABS: BASOPHILS ABSOLUTE AUTO 0.05 K/mm3 (0.00-0.23); BASOPHILS PERCENT AUTO 0 % (0-2); EOSINOPHILS ABSOLUTE AUTO 0.32 K/mm3 (0.00-0.68); EOSINOPHILS PERCENT AUTO 2 % (0-6); Hematocrit 37.5 % (33.0-51.0); Hemoglobin 12.5 g/dL (11.5-16.0); Mean Corpuscular HGB 28.5 pg (26.0-34.0); Mean Corpuscular HGB Conc 33.3 g/dL (31.5-36.5); Mean Corpuscular Volume 85 fL (80-100); Mean Platelet Volume 10.4 fL (9.1-12.4); Platelet Count 353 K/mm3 (150-400); RDW Coefficient Variation 12.8 % (11.7-14.2); RDW Standard Deviation 39.4 fL (35.1-46.3); Red Blood Cell Count 4.39 M/mm3 (3.80-5.20)
[2021-06-09 01:40] LABS: IMMATURE GRAN ABSOLUTE AUTO 0.06 K/mm3 (0.00-0.10); IMMATURE GRAN PERCENT AUTO 0 % (0-1); LYMPHOCYTES ABSOLUTE AUTO 5.28 K/mm3 (0.84-5.20); LYMPHOCYTES PERCENT AUTO 38 % (21-46); MONOCYTES ABSOLUTE AUTO 0.89 K/mm3 (0.16-1.47); MONOCYTES PERCENT AUTO 6 % (4-13); NEUTROPHILS PERCENT AUTO 53 % (41-73)
[2021-06-09 01:44] LABS: Amorphous Light (0-Heavy); Bacteria Few /hpf; Red Blood Cells, Urine 0-2 /hpf (0-2); Squamous Epithelial Cells Few /hpf (Few); White Blood Cells, Urine 0-2 /hpf (0-5)
[2021-06-09 01:55] LABS: Alanine Aminotransfer (ALT/SGP 22 U/L (12-78); Albumin, Blood 3.1 g/dL (3.4-5.0); Albumin/Globulin Ratio 0.8 (0.8-1.8); Alk Phos 74 U/L (50-136); Anion Gap 6 mmol/L (6-16); Aspartate Aminotrans (AST/SGOT 13 U/L (12-37); Bilirubin, Total 0.2 mg/dL (0.1-1.0); Blood Urea Nitrogen 13 mg/dL (8-24); Bun/Creatinine Ratio 27.7 (12.0-20.0); CO2, Blood 27 mmol/L (21-32); Calcium, Blood 8.6 mg/dL (8.5-10.1); Chloride, Blood 106 mmol/L (98-108); Creatinine, Blood 0.47 mg/dL (0.40-1.00); Globulin, Blood 4.1 g/dL (2.2-4.0); Glomerular Filtration Rate >60 (60-); Glucose, Blood 254 mg/dL (70-99); Potassium, Blood 3.8 mmol/L (3.5-5.5); Sodium, Blood 139 mmol/L (136-145); Total Protein, Blood 7.2 g/dL (6.4-8.2)
== END 2021-06-09 03:32 | disposition home or self-care (01) ==
LOC: ER 00:49
PROVIDERS: Student in an Organized Health Care Education/Training Program
DX: N83.201 Unspecified ovarian cyst, right side (principal); E11.9 Type 2 diabetes mellitus without complications; J45.909 Unspecified asthma, uncomplicated; F17.210 Nicotine dependence, cigarettes, uncomplicated
CPT/HCPCS: 74177; 76830; 76856; 80053; 81001; 81025; 83690; 85025; 96374; 99284-25; J1885; Q9967

== ENCOUNTER → 2022-01-31 | Outpatient (CLI) | payer OTHER ==
[2022-02-03 03:10] LABS: CHLAMYDIA TRACHOMATIS, NAA Negative (Negative)
== END | disposition home or self-care (01) ==
LOC: LAB SHORT 17:34 → LAB 17:34
PROVIDERS: Family Medicine
DX: Z20.9 Contact with and (suspected) exposure to unspecified communicable disease (principal)
CPT/HCPCS: 87491; 87591